=== PATIENT | male | born 1980 | race Caucasian/White ===

== ENCOUNTER 2025-05-28 16:08 | Emergency (ER) | payer BC, SELFPAY ==
[2025-05-28 16:10] VITALS: BP 150/89; PULSE 80; RESP 18; TEMP 36.6; O2SAT 100
[2025-05-28 16:11] VITALS: BMI 30.5
[2025-05-28 16:19] VITALS: PULSE 85; O2SAT 99
--- NOTE | 2025-05-28 16:53 | EKG_ITS ---
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
[2025-05-28 16:56] VITALS: PULSE 68
--- NOTE | 2025-05-28 17:00 | PD.EDDIZZY ---
ED Dizzyness RME/HPI General Chief Complaint: Weakness Stated Complaint: DIZZINESS/VOMITING Time Seen by Provider: 05/28/25 16:52 Arrival date/time: 05/28/25 16:08 RME / HPI RME / HPI Narrative: DR. LOPEZ MAIN ED EVALUATION: 44 y/o male with Hx of HTN presents to ED c/o sudden onset dizziness, nausea, and vomiting x 1 day. Dizziness is described as head spinning . Denies any hematuria, hematochezia, melena, or hematemesis. Denies any fever, chills, or night sweats. Also denies any recent alcohol use or illicit drug abuse. Related Data Previous Rx's ?Medication ?Instructions ?Recorded hydrochlorothiazide 12.5 mg capsule 12.5 mg PO QDAY #30 caps 04/05/14 lisinopril 20 mg tablet 20 mg PO QDAY #30 tabs 04/05/14 metoclopramide HCl 5 mg tablet 5 mg PO QDAY PRN vertigo #5 tabs 05/28/25 (Reglan) Allergies Allergy/AdvReac Type Severity Reaction Status Date / Time No Known Allergies Allergy Mild Uncoded 04/04/14 08:28 Review of Systems Review of Systems Systems Reviewed: All systems reviewed, normal except as documented Past Medical History Past Medical History CARDIAC: Positive Hypertension ED Exam Narrative Physical exam: GENERAL APPEARANCE: alert and oriented x 4, well-developed, well-nourished, no acute distress VITALS: All vitals were reviewed and the pulse ox is 100% on room air, which is normal according to my interpretation. HEENT: Normocephalic, atraumatic; pupils equal, round, reactive to light; EOMI; mucous membranes pink, moist; oropharynx clear NECK: Supple LUNGS: CTABL; no wheezes, no rales, no rhonchi HEART: Regular rate, regular rhythm; normal S1, S2; no murmurs ABDOMEN: non distended; normal BS; soft, no tenderness, no guarding, no rebound; no masses, no organomegaly, no hernia BACK: no CVA tenderness EXTREMITIES: atraumatic; no edema NEUROLOGIC: awake; alert and oriented x4; cranial nerves II-XII grossly intact; no focal sensory or motor deficits PSYCHIATRIC: appropriate mood and affect SKIN: warm, dry, normal color; no rashes Course Quality Measures none Orders Category Date Time Status Bedside COVID-19 Antigen Test NOW Care 05/28/25 17:40 Completed Bedside Influenza A&B Antigen Test NOW Care 05/28/25 17:40 Completed Associate Financial Advisor NOW Care 05/28/25 16:53 Completed EKG (ED ONLY) *Do not use* NOW Care 05/28/25 16:[address] head/brain wo con Stat Exams 05/28/25 18:55 Completed EKG (ED Only) Stat Exams 05/28/25 16:53 Draft XR abdomen series w chest 1V Stat Exams 05/28/25 17:41 Completed Alcohol, Blood Medical Stat Lab 05/28/25 17:04 Completed CBC Stat Lab 05/28/25 17:04 Completed CMP [Comprehensive Metabolic Panel] Stat Lab 05/28/25 20:41 Completed Comprehensive Metabolic Panel Stat Lab 05/28/25 17:04 Completed Drug Screen,Urine Stat Lab 05/28/25 17:42 Completed Lipase Stat Lab 05/28/25 17:04 Completed Magnesium Stat Lab 05/28/25 17:04 Completed Troponin I Stat Lab 05/28/25 17:04 Completed UA, C/S IF [Urinalysis, C/S if Indicated] Stat Lab 05/28/25 17:42 Completed Ondansetron Inj [Zofran Inj] Med 05/28/25 17:15 Discontinued 4 mg IVP X1 ONE Ringers Lactated 1000 ml [Lactated Ringers] 1,000 ml Med 05/28/25 18:56 Discontinued IV 999 mls/hr Sodium Chloride 0.9% 1000 ml [Ns] 1,000 ml Med 05/28/25 17:15 Discontinued IV 999 mls/hr Vital Signs Vital signs: Vital Signs Temperature 97.9 F 05/28/25 16:10 Pulse Rate 80 05/28/25 16:10 Respiratory Rate 18 05/28/25 16:10 Blood Pressure 150/89 H 05/28/25 16:10 Pulse Oximetry (%) 100 05/28/25 16:10 Oxygen Delivery Method Room Air 05/28/25 16:10 Dizziness MDM Narrative MDM Narrative:: Scribe Attestation: I, Sunita Cordero, itzel scribing for and in the presence of Dr. Lopez. Provider Notation: Although this document has been carefully reviewed, there may still be some phonetic and other typographical errors. These errors are purely grammatical due to imperfections in the software program and should not be construed in any way to compromise the substance of the patient's medical care during this visit. Patient data External records reviewed:: [facility] previous records (No prior ED records available for review.) and EMS form Clinical information provided by:: patient and EMS Social determinants that could affect healthcare access:: alcohol use Patient has the following chronic illnesses:: HTN How is presenting disease/condition affected by chronic disease/condition?: exacerbated by Evaluation data The following diagnostics were reviewed and interpreted by me:: lab results, radiology exam(s) and EKG tracing(s) (Pending) Lab and/or radiology exams considered but not ordered:: None Interpretation Summary: RADIOLOGY Chest X-Ray: Pending official radiology report. Medications / Prescriptions Medications or Prescriptions considered but not ordered:: None Medication administrations:: Medication Administration History Discontinued Medications Sodium Chloride (Ns) 1,000 mls @ 999 mls/hr IV .Q1H1M ONE Stop: 05/28/25 18:15 Last Infusion: 05/28/25 18:39 Dose: Infused Documented By: Admin: 05/28/25 17:38 Dose: 999 mls/hr Documented By: EF Lactated Ringer's (Lactated Ringers) 1,000 mls @ 999 mls/hr IV .Q1H1M ONE Stop: 05/28/25 19:56 Last Infusion: 05/28/25 20:46 Dose: Infused Documented By: Admin: 05/28/25 19:33 Dose: 999 mls/hr Documented By: ANALI Ondansetron HCl (Ondansetron Inj 2 Mg/Ml Inj 2 Ml) 4 mg IVP X1 ONE; Protocol Stop: 05/28/25 17:16 Last Admin: 05/28/25 17:38 Dose: 4 mg Documented By: EF See above if any Consultations Consultation(s) initiated? (list below): No Diagnosis Dizziness Differential Diagnosis: adverse reaction to drug, benign paroxysmal positional vertigo, orthostatic hypotension, vertebral basilar insufficiency, transient cerebral ischemia and other (Gastritis, GERD) Most likely diagnosis given after review of the tests above:: Dizziness Admission Indicated Admission indicated?: not indicated Explain why admission is indicated or not indicated:: Pending labs,CXR, EKG, and final disposition. Admission Request Was there a request for admission?: No Disposition Plan Disposition Plan: other (specify) (Signed out to Dr. Feldman at 6 PM.) Discharge Plan Plan Patient Disposition: HOME (Self Care) Prescriptions/Referrals Prescriptions/Med Rec: New metoclopramide HCl [Reglan] 5 mg tablet 5 mg PO QDAY PRN (Reason: vertigo) Qty: 5 0RF No Action lisinopril 20 MG tablet 20 mg PO QDAY Qty: 30 0RF hydrochlorothiazide 12.5 MG capsule 12.5 mg PO QDAY Qty: 30 0RF Problem List Clinical Impression: Dizziness of unknown etiology, Nausea Patient/Caregiver Discharge Instructions Education Materials: Vertigo Medicine Tx Additional Instructions: Your labs today showed that your white blood cell count was elevated to 13, your hemoglobin was normal, your metabolic panel was normal except for mild elevation in your bilirubin. Given that you do not have any abdominal pain, and it downtrended with fluids, we are reassured by her presentation. However if you develop abdominal pain important that you return to the emergency room immediately for further evaluation. The CT scan of your brain did not identify any acute intracranial abnormalities. Please follow-up with your primary care doctor within the next 1 to 2 days. I recommend that you eat a bland diet. Hydrate well, and return immediately if you have any worsening symptoms or symptoms of Print Language: Divehi Stand Alone Forms: [facility] Award Info., Patient Portal Info Letter
[2025-05-28 17:20] LABS: Basophils # (Auto) 0.0 Thou/mm3 (0.0-0.2); Basophils % (Auto) 0 % (0-2.5); Eosinophils # (Auto) 0.0 Thou/mm3 (0.0-0.5); Eosinophils % (Auto) 0 % (0-10); Hematocrit 41.0 % (41.0-53.0); Hemoglobin 14.3 g/dL (13.5-16.0); Immature Granulocytes Auto 0.05 Thou/mm3 (0.00-0.00); Lymphocytes # (Auto) 2.1 Thou/mm3 (1.0-4.8); Lymphocytes % (Auto) 16 % (10-50); Mean Corpuscular HGB Conc 34.9 g/dl (31.0-37.0); Mean Corpuscular Hemoglobin 30.4 pg (25.0-35.0); Mean Corpuscular Volume 87 fL (80-100); Monocytes # (Auto) 0.9 Thou/mm3 (0.0-0.8); Monocytes % (Auto) 7 % (0-12); Neutrophils # (Auto) 10.4 Thou/mm3 (1.8-7.7); Neutrophils % (Auto) 77 % (37-80); Nucleated Red Blood Cell # 0.00 Thou/mm3 (0.00-0.00); Nucleated Red Blood Cell % 0 /100 WBC (0); Platelet Count 266 Thou/mm3 (140-440); RDW Standard Deviation 41.3 fL (35.1-43.9); Red Blood Count 4.70 Miln/mm3 (4.50-5.90); White Blood Count 13.5 Thou/mm3 (3.8-10.6)
[2025-05-28] MEDS: SODIUM CHLORIDE 0.9% 1000 ML 1,000 ML 999 ML IV (17:38)
[2025-05-28] MEDS: ONDANSETRON INJ 2 MG/ML INJ 2 ML 4 MG IVP (17:38)
--- NOTE | 2025-05-28 17:41 | XR_ITS ---
EXAMINATION: Abdominal series 3 views including upright PA chest TECHNIQUE: Upright PA chest AP upright AP supine abdomen 3 views Date and time: May 28, 2025, 1753 hours INDICATIONS: Abdominal pain today. FINDINGS: Normal heart size Lungs are clear Nonobstructive bowel gas pattern No renal or ureteral calculi,. Osseous structures intact IMPRESSION: Nonobstructive bowel gas pattern
[2025-05-28 17:47] LABS: Alanine Aminotransferase 25 U/L (10-49); Albumin, Serum 5.0 gm/dL (3.5-5.0); Albumin/Globulin Ratio 1.9 (1.2-2.2); Alcohol, Blood Medical < 3.0 mg/dL (0-10.0); Alkaline Phosphatase 60 U/L (46-116); Anion Gap 11 (7-16); Aspartate Amino Transferase 14 U/L (0-34); BUN/Creatinine Ratio 15 Ratio (12-20); Bilirubin,Total 1.9 mg/dL (0.3-1.2); Blood Urea Nitrogen 12 mg/dL (9-23); Calcium 10.1 mg/dL (8.3-10.6); Calcium (Corrected) 10.1 mg/dL (8.5-10.1); Carbon Dioxide 27.1 mMol/L (20.0-31.0); Chloride 105 mMol/L (98-107); Creatinine (Component) 0.8 mg/dL (0.6-1.3); Estimated Creatinine Clearance 147.2 mL/min (>60); Globulin 2.6 gm/dL (2.3-3.5); Glucose 97 mg/dL (74-106); Lipase 31 U/L (12-53); Magnesium 2.0 mg/dL (1.6-2.6); Osmolality,Calculated 284 (275-295); Potassium 3.7 mMol/L (3.4-5.1); Sodium 143 mMol/L (136-145); Total Protein 7.6 gm/dL (5.7-8.2); Troponin I < 0.020 ng/mL (0.0-0.045); eGFR > 60 See Note
--- NOTE | 2025-05-28 18:08 | EDNOTE_ITS ---
Emergency Room Addendum <Mindy Kwok - Last Filed: 05/28/25 21:52> Addendum Narrative: 1800: Care assumed from Dr. Lopez, the previous shift emergency physician. Past medical, surgical, social and family history reviewed. Vitals and home medications reviewed. Results and treatment plan discussed. I will assume the care of the patient at this time and will follow the patient. Please refer to the emergency department record for history and examination from initial visit. 44yo male with a history of HTN, chronic abdominal pain, anal fissure, rosacea presents to the ED for a chief complaint of vertigo x today. Patient was going over to his daughter's house today to help take care of her when he suddenly started feeling like the room was spinning and nauseated. Patient reports associated tinnitus, but no ear pain. No fever or chills. No chest pain, shortness of breath, headache, difficulty ambulating. No abdominal pain. Patient endorses having one similar episode in the past. No weakness in his upper or lower extremities, no confusion. Denies any head trauma. Patient has had an episode of vertigo in the past. Patient states that he recently arrived here approximately a week or so ago from [place]. He came to [place] to care of his daughter that is currently receiving treatment at home via PICC line for a complicated pneumonia. On my assessment, patient GCS 15, no focal neurodeficits symptoms completely resolved. Labs with evidence of leukocytosis 13.5, no left shift, metabolic panel notable for T. bili 1.9, patient does not have any abdominal pain.. Troponin not elevated, fluids provided will repeat CHEM panel. Urinalysis negative for leuk esterase, negative for nitrates, 4 RBCs 2 WBCs patient without dysuria, not infected. Drug screen is positive for marijuana. Head CT unremarkable. X-ray of the chest abdomen unremarkable. EKG performed today at 1703, interpreted by me. Notable for sinus rhythm, normal intervals, nonspecific T wave changes, not a cardiac alert. RADIOLOGY RESULTS: [facility] Report Signed Patient: CLINT STEPHEN Record#: [id number] Birthdate: 1980 Age/Sex: 44 / M Location: [facility] Attending Dr: Ordering Physician: Hui Lopez MD Date of Service: 05/28/25 Procedure(s): XR abdomen series w chest 1V Accession Number(s): [id number] cc: Serg Donohue MD; NO PRIMARY/FAMILY,PHYSICIAN; Hui Lopez MD~ EXAMINATION: Abdominal series 3 views including upright PA chest TECHNIQUE: Upright PA chest AP upright AP supine abdomen 3 views Date and time: May 28, 2025, 1753 hours INDICATIONS: Abdominal pain today. FINDINGS: Normal heart size Lungs are clear Nonobstructive bowel gas pattern No renal or ureteral calculi,. Osseous structures intact IMPRESSION: Nonobstructive bowel gas pattern Dictated By: Serg Donohue MD Signed By: <Electronically signed by Serg Donohue MD in OV> 05/28/25 1857 [facility] Report Signed Patient: CLINT STEPHEN Record#: [id number] Birthdate: 1980 Age/Sex: 44 / M Location: [facility] Attending Dr: Ordering Physician: Jeanine Feldman MD Date of Service: 05/28/25 Procedure(s): CT head/brain wo con Accession Number(s): [id number] cc: Serg Donohue MD; NO PRIMARY/FAMILY,PHYSICIAN; Jeanine Feldman MD~ Examination: CT brain head without contrast. 2-D sagittal coronal reconstructions Date and time of exam: May 28, 2025, 1914 hours COMPARISON: 02/25/2006 INDICATIONS: Nausea vomiting dizziness beginning today CTDI: vol (mGy): 49.9 DLP: (mGycm): 1025 Technique: Multiple CT axial sections of the brain have been obtained, 5 mm slice thickness. Contrast has not been administered. 2-D sagittal, coronal reconstructions have been obtained Low dose protocols were performed. One or more of the following dose reduction techniques were used; automated exposure control, adjustment of the mA and/or KV according to patient size, use of iterative reconstruction technique. Findings: No significant ventricular enlargement. Intra-axial or extra-axial hemorrhage density is not seen. No mass effect or midline shift Basal cisterns are not remarkable. Fourth ventricle is midline. Cranial vault intact. Impression: Negative for acute hemorrhage, mass effect or midline shift Advise clinical correlation and follow-up accordingly Dictated By: Serg Donohue MD Signed By: <Electronically signed by Serg Donohue MD in OV> 05/28/252045 <Jeanine Feldman MD - Last Filed: 05/28/25 21:55> Addendum Narrative: 1800: Care assumed from Dr. Lopez, the previous shift emergency physician. Past medical, surgical, social and family history reviewed. Vitals and home medications reviewed. Results and treatment plan discussed. I will assume the care of the patient at this time and will follow the patient. Please refer to the emergency department record for history and examination from initial visit. 44yo male with a history of HTN, chronic abdominal pain, anal fissure, rosacea presents to the ED for a chief complaint of vertigo x today. Patient was going over to his daughter's house today to help take care of her when he suddenly started feeling like the room was spinning and nauseated. Patient reports associated tinnitus, but no ear pain. No fever or chills. No chest pain, shortness of breath, headache, difficulty ambulating. No abdominal pain. Patient endorses having one similar episode in the past. No weakness in his upper or lower extremities, no confusion. Denies any head trauma. Patient has had an episode of vertigo in the past. Patient states that he recently arrived here approximately a week or so ago from [place]. He came to [place] to care of his daughter that is currently receiving treatment at home via PICC line for a complicated pneumonia. On my assessment, patient GCS 15, no focal neurodeficits symptoms completely resolved. Labs with evidence of leukocytosis 13.5, no left shift, metabolic panel notable for T. bili 1.9, patient does not have any abdominal pain. Repeated labs, bilirubin down trended. Patient does not have abdominal pain. Urinalysis negative for leuk esterase, negative for nitrates, 4 RBCs 2 WBCs patient without dysuria, not infected. Drug screen is positive for marijuana. Head CT unremarkable. X-ray of the chest abdomen unremarkable. EKG performed today at 1703, interpreted by me. Notable for sinus rhythm, normal intervals, nonspecific T wave changes, not a cardiac alert. On reevaluation patient continues to be asymptomatic. Will discharge home close return precautions follow-up. RADIOLOGY RESULTS: [facility] Report Signed Patient: CLINT STEPHEN [facility]. Record#: [id number] Birthdate: 1980 Age/Sex: 44 / M Location: [facility] Attending Dr: Ordering Physician: Hui Lopez MD Date of Service: 05/28/25 Procedure(s): XR abdomen series w chest 1V Accession Number(s): [id number] cc: Serg Donohue MD; NO PRIMARY/FAMILY,PHYSICIAN; Hui Lopez MD~ EXAMINATION: Abdominal series 3 views including upright PA chest TECHNIQUE: Upright PA chest AP upright AP supine abdomen 3 views Date and time: May 28, 2025, 1753 hours INDICATIONS: Abdominal pain today. FINDINGS: Normal heart size Lungs are clear Nonobstructive bowel gas pattern No renal or ureteral calculi,. Osseous structures intact IMPRESSION: Nonobstructive bowel gas pattern Dictated By: Serg Donohue MD Signed By: <Electronically signed by Serg Donohue MD in > 05/28/25 1857 [facility] Report Signed Patient: CLINT STEPHEN [facility]. Record#: [id number] Birthdate: 1980 Age/Sex: 44 / M Location: [facility] Attending Dr: Ordering Physician: Jeanine Feldman MD Date of Service: 05/28/25 Procedure(s): CT head/brain wo con Accession Number(s): [id number] cc: Serg Donohue MD; NO PRIMARY/FAMILY,PHYSICIAN; Jeanine Feldman MD~ Examination: CT brain head without contrast. 2-D sagittal coronal reconstructions Date and time of exam: May 28, 2025, 1914 hours COMPARISON: 02/25/2006 INDICATIONS: Nausea vomiting dizziness beginning today CTDI: vol (mGy): 49.9 DLP: (mGycm): 1025 Technique: Multiple CT axial sections of the brain have been obtained, 5 mm slice thickness. Contrast has not been administered. 2-D sagittal, coronal reconstructions have been obtained Low dose protocols were performed. One or more of the following dose reduction techniques were used; automated exposure control, adjustment of the mA and/or KV according to patient size, use of iterative reconstruction technique. Findings: No significant ventricular enlargement. Intra-axial or extra-axial hemorrhage density is not seen. No mass effect or midline shift Basal cisterns are not remarkable. Fourth ventricle is midline. Cranial vault intact. Impression: Negative for acute hemorrhage, mass effect or midline shift Advise clinical correlation and follow-up accordingly Dictated By: Serg Donohue MD Signed By: <Electronically signed by Serg Donohue MD in OV> 05/28/25 4746
[2025-05-28 18:21] LABS: Collection Type, Urine Clean Catch; Squamous Epithelial Cell,Urine 0 /hpf (0-5)
[2025-05-28 18:27] LABS: Bilirubin,Urine Negative (Negative); Blood,Urine Negative (Negative); Clarity,Urine Clear (Clear/Hazy); Color,Urine Yellow (Lt Yel-Yel); Culture Indicated,Urine Not Indicated; Glucose, Urine Negative (Negative); Ketones,Urine Negative (Negative); Leukocyte Esterase,Urine Negative (Negative); Nitrite,Urine Negative (Negative); PH,Urine 6.0 (5.0-7.0); Protein,Urine Trace (Neg - Trace); RBC,Urine 4 /hpf (0-3); Specific Gravity,Urine 1.022 (1.001-1.035); Urobilinogen,Urine Negative mg/dL (0.0-1.0); WBC,Urine 2 /hpf (0-5)
[2025-05-28 18:30] VITALS: BP 131/83; PULSE 61; RESP 19; TEMP 36.8; O2SAT 96
[2025-05-28 18:33] LABS: Amphetamine/Methamp Scrn,U Negative (Negative); Barbiturate Screen,Urine Negative (Negative); Benzodiazepines Screen,Urine Negative (Negative); Benzoylecgonine Screen, Ur Negative (Negative); Fentanyl Screen,Urine Negative (Negative); Opiate Screen,Urine Negative (Negative); THC Screen,Urine Positive (Negative)
--- NOTE | 2025-05-28 18:55 | XR_ITS ---
Examination: CT brain head without contrast. 2-D sagittal coronal reconstructions Date and time of exam: May 28, 2025, 1914 hours COMPARISON: 02/25/2006 INDICATIONS: Nausea vomiting dizziness beginning today CTDI: vol (mGy): 49.9 DLP: (mGycm): 1025 Technique: Multiple CT axial sections of the brain have been obtained, 5 mm slice thickness. Contrast has not been administered. 2-D sagittal, coronal reconstructions have been obtained Low dose protocols were performed. One or more of the following dose reduction techniques were used; automated exposure control, adjustment of the mA and/or KV according to patient size, use of iterative reconstruction technique. Findings: No significant ventricular enlargement. Intra-axial or extra-axial hemorrhage density is not seen. No mass effect or midline shift Basal cisterns are not remarkable. Fourth ventricle is midline. Cranial vault intact. Impression: Negative for acute hemorrhage, mass effect or midline shift Advise clinical correlation and follow-up accordingly
[2025-05-28] MEDS: RINGERS LACTATED 1000 ML 1,000 ML 999 ML IV (19:33)
[2025-05-28 20:51] VITALS: BP 97/54; PULSE 67; RESP 16; TEMP 36.6; O2SAT 97
[2025-05-28 21:30] LABS: Alanine Aminotransferase 21 U/L (10-49); Albumin, Serum 4.4 gm/dL (3.5-5.0); Albumin/Globulin Ratio 1.9 (1.2-2.2); Alkaline Phosphatase 54 U/L (46-116); Anion Gap 9 (7-16); Aspartate Amino Transferase 19 U/L (0-34); BUN/Creatinine Ratio 14 Ratio (12-20); Bilirubin,Total 1.7 mg/dL (0.3-1.2); Blood Urea Nitrogen 10 mg/dL (9-23); Calcium 9.3 mg/dL (8.3-10.6); Calcium (Corrected) 9.3 mg/dL (8.5-10.1); Carbon Dioxide 25.8 mMol/L (20.0-31.0); Chloride 109 mMol/L (98-107); Creatinine (Component) 0.7 mg/dL (0.6-1.3); Estimated Creatinine Clearance 168.2 mL/min (>60); Globulin 2.3 gm/dL (2.3-3.5); Glucose 97 mg/dL (74-106); Osmolality,Calculated 285 (275-295); Potassium 4.0 mMol/L (3.4-5.1); Sodium 144 mMol/L (136-145); Total Protein 6.7 gm/dL (5.7-8.2); eGFR > 60 See Note
[2025-05-28 22:04] VITALS: BP 113/64; PULSE 74; RESP 13; O2SAT 95
== END 2025-05-28 22:05 | disposition home or self-care (01) ==
PROVIDERS: Emergency Medicine; Emergency Provider Emergency Medicine
DX: R11.2 Nausea with vomiting, unspecified (principal); R42 Dizziness and giddiness; R10.9 Unspecified abdominal pain; I10 Essential (primary) hypertension
CPT/HCPCS: 36415; 70450; 74022; 80053; 80307; 80320; 81001; 83690; 83735; 84484; 85025; 87502; 87635; 93005; 96361; 96365; 96375; 99285; J2405; J7030; J7120; G0480